=== PATIENT | male | born 1945 | race Caucasian/White ===

== ENCOUNTER 2020-05-24 16:04 | Inpatient (IN) ==
[2020-05-24] MEDS ORDERED: NS 0.9% 1000 ml BAG 1,000 ML IV ONE ×2 (18:18→21:19)
[2020-05-24 18:22] LABS: ABS Lymphocytes 0.5 10^3/ul (1.0-4.8); ABS Monocytes 1.2 10^3/ul (0-0.8); ABS Neutrophils 13.5 10^3/ul (1.5-7.7); Hematocrit 31 % (42-52); Hemoglobin 10.7 g/dL (14.0-18.0); Lymphocyte % 3.1 %; Mean Corpuscular HGB Conc 34 g/dL (31-36); Mean Corpuscular Hemoglobin 32 pg (27-31); Mean Corpuscular Volume 95 fL (80-94); Mean Platelet Volume 7.9 fL (7.4-10.4); Platelet Count 285 10^3/uL (150-450); Red Blood Count 3.31 10^6 /uL (4.18-5.48); Red Cell Distribution Width 14 % (10-15); White Blood Count 15.2 10^3/uL (3.5-10.8)
[2020-05-24 18:25] LABS: Urine Appearance Cloudy; Urine Bilirubin Negative (Negative); Urine Blood 1+ (Negative); Urine Color Yellow; Urine Glucose Negative (Negative); Urine Ketones Negative (Negative); Urine Nitrite Negative (Negative); Urine Protein 1+(30 mg/dL) (Negative); Urine Specific Gravity 1.018 (1.010-1.030); Urine Urobilinogen Negative (Negative)
[2020-05-24 18:36] LABS: Urine Bacteria Absent (Absent); Urine Red Blood Cell 1+(3-5/hpf) (Absent); Urine White Blood Cell Trace(0-5/hpf) (Absent)
[2020-05-24 18:41] LABS: Troponin I 0.04 ng/mL (<0.03)
[2020-05-24 18:43] LABS: ALT 16 U/L (7-52); AST 24 U/L (13-39); Albumin 4.1 g/dL (3.2-5.2); Albumin/Globulin Ratio 1.2 (1-3); Alkaline Phosphatase 55 U/L (34-104); Anion Gap 9 mmol/L (2-11); BUN/Creatinine Ratio 19.9 (8-20); Blood Urea Nitrogen 35 mg/dL (6-24); CO2 Carbon Dioxide 26 mmol/L (22-32); Calcium 9.6 mg/dL (8.6-10.3); Chloride 102 mmol/L (101-111); EGFR African American 45.9 (>60); EGFR Non-African American 37.9 (>60); Globulin 3.5 g/dL (2-4); Glucose 140 mg/dL (70-100); Potassium 4.1 mmol/L (3.5-5.0); Sodium 137 mmol/L (135-145); Total Protein 7.6 g/dL (6.4-8.9)
[2020-05-24 18:58] LABS: TSH Ultra Thyroid Stim Horm 1.96 mcIU/mL (0.34-5.60)
[2020-05-24 19:00] LABS: Alcohol, S < 10 mg/dL (<10); Magnesium 1.4 mg/dL (1.9-2.7)
[2020-05-24] MEDS ORDERED: Magnesium Sulfate IV 3 GM in NS 0.9% 100 ml BAG 100 ML IVPB ONE (21:36)
[2020-05-24 22:00] LABS: Troponin I 0.04 ng/mL (<0.03)
[2020-05-24] MEDS ORDERED: cefTRIAXone 1 gm/50 mL NS BAG 1 GM/50 ML BAG IVPB SCH (22:00)
[2020-05-24] MEDS ORDERED: Azithromycin 500 mg/250 ml NS 500 MG/250 ML BAG IVPB SCH (23:00)
[2020-05-25 00:57] LABS: Troponin I 0.05 ng/mL (<0.03)
[2020-05-25 05:00] LABS: ABS Lymphocytes 0.6 10^3/ul (1.0-4.8); ABS Monocytes 1.2 10^3/ul (0-0.8); ABS Neutrophils 10.3 10^3/ul (1.5-7.7); Eosinophil % 0.1 %; Hematocrit 25 % (42-52); Hemoglobin 8.8 g/dL (14.0-18.0); Lymphocyte % 5.1 %; Mean Corpuscular HGB Conc 35 g/dL (31-36); Mean Corpuscular Hemoglobin 33 pg (27-31); Mean Corpuscular Volume 94 fL (80-94); Mean Platelet Volume 7.4 fL (7.4-10.4); Platelet Count 241 10^3/uL (150-450); Red Blood Count 2.71 10^6 /uL (4.18-5.48); Red Cell Distribution Width 14 % (10-15); White Blood Count 12.2 10^3/uL (3.5-10.8)
[2020-05-25 05:20] LABS: Anion Gap 9 mmol/L (2-11); BUN/Creatinine Ratio 24.1 (8-20); Blood Urea Nitrogen 33 mg/dL (6-24); CO2 Carbon Dioxide 22 mmol/L (22-32); Calcium 8.5 mg/dL (8.6-10.3); Chloride 107 mmol/L (101-111); Cholesterol 94 mg/dL; EGFR African American 61.3 (>60); EGFR Non-African American 50.7 (>60); Glucose 112 mg/dL (70-100); HDL Cholesterol 37.5 mg/dL; LDL Cholesterol 44 mg/dL; Magnesium 2.1 mg/dL (1.9-2.7); Potassium 3.9 mmol/L (3.5-5.0); Sodium 138 mmol/L (135-145); Triglycerides 65 mg/dL
[2020-05-25 05:40] LABS: Troponin I 0.05 ng/mL (<0.03)
[2020-05-25] MEDS: NS 0.9% 1000 ml BAG 1,000 ML IV SCH ×2 (07:47→15:43)
[2020-05-25 15:48] VITALS: BP 142/61
[2020-05-25 16:31] LABS: C Reactive Protein 161.71 mg/L (<8.01)
== END 2020-05-25 17:15 | disposition left against medical advice (07) | DRG 871 ==
LOC: ED 16:04 → MED 21:39
PROVIDERS: ADMIT Nurse Practitioner; ATTEND Internal Medicine

== ENCOUNTER 2020-09-20 10:23 | Inpatient (IN) ==
[2020-09-20] MEDS ORDERED: NS 0.9% 1000 ml BAG 1,000 ML IV ONE ×2 (10:52→12:59)
[2020-09-20] MEDS ORDERED: Benzoin Compound STICK TOPICAL ONE (10:53)
[2020-09-20 11:34] LABS: ABS Lymphocytes 0.6 10^3/ul (1.0-4.8); ABS Monocytes 0.5 10^3/ul (0-0.8); ABS Neutrophils 13.5 10^3/ul (1.5-7.7); Eosinophil % 0.1 %; Hematocrit 31 % (42-52); Lymphocyte % 3.8 %; Mean Corpuscular HGB Conc 33 g/dL (31-36); Mean Corpuscular Hemoglobin 30 pg (27-31); Mean Corpuscular Volume 92 fL (80-94); Mean Platelet Volume 8.4 fL (7.4-10.4); Platelet Count 409 10^3/uL (150-450); Red Cell Distribution Width 15 % (10-15); White Blood Count 14.6 10^3/uL (3.5-10.8)
[2020-09-20 12:07] LABS: Albumin 4.4 g/dL (3.2-5.2); CO2 Carbon Dioxide 21 mmol/L (22-32); Calcium 10.3 mg/dL (8.6-10.3); Chloride 103 mmol/L (101-111); Sodium 136 mmol/L (135-145)
[2020-09-20 12:13] LABS: ALT 10 U/L (7-52); Albumin/Globulin Ratio 1.3 (1-3); Alkaline Phosphatase 61 U/L (34-104); BUN/Creatinine Ratio 19.1 (8-20); Blood Urea Nitrogen 75 mg/dL (6-24); EGFR African American 18.2 (>60); Globulin 3.5 g/dL (2-4); Glucose 178 mg/dL (70-100); Total Protein 7.9 g/dL (6.4-8.9)
[2020-09-20 12:42] LABS: Anion Gap 12 mmol/L (2-11)
[2020-09-20 13:34] LABS: Troponin I 0.01 ng/mL (<0.03)
[2020-09-20 13:35] LABS: TSH Ultra Thyroid Stim Horm 4.83 mcIU/mL (0.34-5.60)
[2020-09-20] MEDS ORDERED: Piperacillin/Tazobac ADVAN 2.25 GM in NS 0.9% 100 ml BAG 100 ML IVPB ONE (13:46)
[2020-09-20] MEDS ORDERED: Zosyn 3.375 GM IV - ED ONCE IV ONE (15:00)
[2020-09-20 15:04] LABS: Magnesium 2.4 mg/dL (1.9-2.7)
[2020-09-20 15:32] LABS: Potassium Redraw 5.6 mmol/L (3.5-5.0)
[2020-09-20] MEDS ORDERED: Piperacillin/Tazobac ADVAN 3.375 GM in NS 0.9% 100 ml BAG 100 ML IV ONE (16:01)
[2020-09-20] MEDS ORDERED: Zosyn per Pharmacy NOTE FOLLOW UP SCH (17:00)
[2020-09-20 17:46] LABS: INR 1.05 (0.82-1.09)
[2020-09-20] MEDS: NS 0.9% 1000 ml BAG 1,000 ML IV SCH (18:24)
[2020-09-20] MEDS: ZOSYN 3.375 GM Q12H per EXTENDED INFUSION IV SCH (19:45)
[2020-09-20 19:56] LABS: BUN/Creatinine Ratio 21.9 (8-20); Calcium 9.5 mg/dL (8.6-10.3); EGFR Non-African American 18.2 (>60)
[2020-09-20 19:57] LABS: Potassium 5.4 mmol/L (3.5-5.0)
[2020-09-20] MEDS ORDERED: Heparin 5000 UNITS/ML 1 mL VIAL SUBCUT SCH (22:00)
[2020-09-20] MEDS ORDERED: Pantoprazole VIAL 40 MG VIAL IV ONE (22:04)
[2020-09-20] MEDS ORDERED: Ondansetron 4 mg VIAL 2 MG/ML 2 ml VIAL IV PRN (22:05)
[2020-09-20 22:31] LABS: Prealbumin 29 mg/dL (18-38)
[2020-09-20 23:15] LABS: Urine Appearance Cloudy; Urine Bilirubin Negative (Negative); Urine Blood Negative (Negative); Urine Color Yellow; Urine Glucose Negative (Negative); Urine Ketones Negative (Negative); Urine Nitrite Negative (Negative); Urine Protein Negative (Negative); Urine Specific Gravity 1.018 (1.010-1.030); Urine Urobilinogen Negative (Negative)
[2020-09-21 00:08] LABS: Hematocrit 28 % (42-52); Hemoglobin 9.5 g/dL (14.0-18.0)
[2020-09-21] MEDS: Pantoprazole 80 mg in NS BAG 80 MG/250 ML BAG IV SCH ×3 (00:28→22:12)
[2020-09-21] MEDS: NS 0.9% 1000 ml BAG 1,000 ML IV SCH ×2 (06:07→20:40)
[2020-09-21 06:39] LABS: ABS Basophils 0.1 10^3/ul (0-0.2); ABS Lymphocytes 0.5 10^3/ul (1.0-4.8); ABS Monocytes 1.3 10^3/ul (0-0.8); ABS Neutrophils 17.2 10^3/ul (1.5-7.7); Hematocrit 28 % (42-52); Hemoglobin 9.3 g/dL (14.0-18.0); Lymphocyte % 2.6 %; Mean Corpuscular HGB Conc 33 g/dL (31-36); Mean Corpuscular Hemoglobin 31 pg (27-31); Mean Corpuscular Volume 92 fL (80-94); Mean Platelet Volume 7.7 fL (7.4-10.4); Platelet Count 363 10^3/uL (150-450); Red Blood Count 3.04 10^6 /uL (4.18-5.48); Red Cell Distribution Width 14 % (10-15)
[2020-09-21 07:05] LABS: BUN/Creatinine Ratio 27.1 (8-20); Calcium 8.9 mg/dL (8.6-10.3); EGFR African American 29.9 (>60); EGFR Non-African American 24.7 (>60)
[2020-09-21 07:10] LABS: Potassium 5.5 mmol/L (3.5-5.0)
[2020-09-21] MEDS: ZOSYN 3.375 GM Q12H per EXTENDED INFUSION IV SCH (08:51)
[2020-09-21 09:07] LABS: Urine Creatinine Concentration 118.24 mg/dL
[2020-09-22 02:57] LABS: ABS Lymphocytes 0.7 10^3/ul (1.0-4.8); ABS Monocytes 1.4 10^3/ul (0-0.8); Hematocrit 29 % (42-52); Hemoglobin 9.4 g/dL (14.0-18.0); Lymphocyte % 3.8 %; Mean Corpuscular HGB Conc 33 g/dL (31-36); Mean Corpuscular Hemoglobin 30 pg (27-31); Mean Corpuscular Volume 92 fL (80-94); Mean Platelet Volume 7.8 fL (7.4-10.4); Platelet Count 352 10^3/uL (150-450); Red Blood Count 3.12 10^6 /uL (4.18-5.48); Red Cell Distribution Width 14 % (10-15); White Blood Count 17.1 10^3/uL (3.5-10.8)
[2020-09-22 03:17] LABS: ALT 8 U/L (7-52); AST 17 U/L (13-39); Albumin 3.5 g/dL (3.2-5.2); Albumin/Globulin Ratio 1.3 (1-3); Alkaline Phosphatase 47 U/L (34-104); BUN/Creatinine Ratio 33.2 (8-20); Blood Urea Nitrogen 64 mg/dL (6-24); CO2 Carbon Dioxide 25 mmol/L (22-32); Calcium 9.1 mg/dL (8.6-10.3); EGFR African American 41.3 (>60); EGFR Non-African American 34.1 (>60); Globulin 2.8 g/dL (2-4); Glucose 113 mg/dL (70-100); Sodium 145 mmol/L (135-145); Total Iron Binding Capacity 354 mcg/dL (250-450); Total Protein 6.3 g/dL (6.4-8.9); Transferrin 253 mg/dL (203-362)
[2020-09-22 03:21] LABS: % Iron Saturation 6 % (15-55); Anion Gap 8 mmol/L (2-11); Chloride 112 mmol/L (101-111); Iron < 20 ug/dL (50-212); Potassium 5.6 mmol/L (3.5-5.0); Unsaturated Iron Binding < 339 ug/dL
[2020-09-22 03:34] LABS: Carcinoembryonic Antigen 3.1 ng/mL (0.1-5.0)
[2020-09-22 03:39] LABS: Ferritin 15.1 ng/mL (24-336)
[2020-09-22 03:43] LABS: Folate 11.58 ng/mL (>3.99)
[2020-09-22 03:44] LABS: Vitamin B12 202 pg/mL (180-914)
[2020-09-22] MEDS: NS 0.9% 1000 ml BAG 1,000 ML IV SCH ×2 (07:34→15:50)
[2020-09-22] MEDS: Pantoprazole 80 mg in NS BAG 80 MG/250 ML BAG IV SCH ×2 (09:47→21:15)
[2020-09-23] MEDS: NS 0.9% 1000 ml BAG 1,000 ML IV SCH ×2 (02:35→12:11)
[2020-09-23] MEDS: Pantoprazole 80 mg in NS BAG 80 MG/250 ML BAG IV SCH ×2 (08:49→15:14)
[2020-09-23] MEDS ORDERED: Atropine 1% (ORAL/SL) 15 ML BTL SL PRN (14:59)
[2020-09-23] MEDS ORDERED: Morphine ORAL CONCENTRATE 5 MG/0.25 ML ORAL.SYRIN SL PRN (14:59)
[2020-10-06] MEDS ORDERED: Morphine ORAL.SOLN 10 mg 2 mg/ml UDC 5 ml (10 mg) PO PRN (08:37)
[2020-10-09 15:04] VITALS: BP 85/52
== END 2020-10-13 11:45 | disposition hospice, home (50) | DRG 388 ==
LOC: ED 10:23 → MEDTELE 15:43 → MED 10-02 09:19
PROVIDERS: ADMIT Student in an Organized Health Care Education/Training Program; ATTEND Internal Medicine